=== PATIENT | female | born 1950 | race Caucasian/White ===

== ENCOUNTER 2016-08-21 19:08 | Emergency (ER) | payer MEDICARE, OTHER ==
[~2016-08-21] VITALS: Ht 167.6 cm; Wt 84.4 kg
[~2016-08-21 19:08] MED LIST: ATOR10TA PO
[2016-08-21 19:17] VITALS: BP 133/89; PULSE 97; RESP 20; TEMP 98.1; O2SAT 95
--- NOTE | 2016-08-21 20:01 | PD ---
HPI . facial cellulitis since Friday Chief Complaint: Skin Problem Time Seen by Provider: 20:00 Travel History International Travel<30 days: No Contact w/Intl Traveler<30days: No Traveled to known affect area: No History of Present Illness HPI 66-year-old with hyperlipidemia here with complaint of a facial cellulitis and possible staph infection that has been present since Friday. Patient went to [facility] yesterday was given doxycycline and Bactroban. She is here today complaining that the medications are not working and the area spreading. She denies any fever or chills. She denies use of new makeup or hygiene products. She is accompanied by her daughter. [facility] Past Medical History High Cholesterol: Yes Menopausal: Yes Social History Alcohol Use: Yes (SOCIALLY OCCAS) Tobacco Use: No Substance Use: No Allergies-Medications (Allergen,Severity, Reaction): Coded Allergies: Cipro (Unverified Allergy, Mild, PAIN, 08/21/16) "CIPRO FAMILY" Reported Meds & Prescriptions Reported Meds & Active Scripts Active Reported Doxycycline 40 Mg Cap 100 Mg PO BID Calcium 1200 (Calcium Carbonate-Vitamin D W/Minerals) 1,200-1,000 Mg-Unit Chew 1 Tab CHEW DAILY Probiotic (Lactobacillus Acidophilus) 1 Cap Cap 1 Cap PO TIDAC Vitamin D3 (Cholecalciferol) 1,000 Unit Chew 1,000 Units CHEW DAILY Magnesium Oxide 400 Mg Tab 400 Mg PO DAILY Multivitamin Women (Multiple Vitamins W/ Minerals) 1 Tab Tab 1 Tab PO DAILY Vitamin C (Ascorbic Acid) 500 Mg Chew 500 Mg CHEW DAILY Latanoprost Opth Drops (Latanoprost) 0.005% Drops 1 Drop EACH EYE HS Refrigerate until opened. Atorvastatin (Atorvastatin Calcium) 40 Mg Tab 40 Mg PO HS Review of Systems General / Constitutional: No: Fever Eyes: No: Visual changes HENT: No: Headaches Cardiovascular: No: Chest Pain or Discomfort Respiratory: No: Shortness of Breath Gastrointestinal: No: Abdominal Pain Genitourinary: No: Dysuria Musculoskeletal: No: Pain Skin: Positive Other (erythema and edema around nasal bridge), No Rash Neurologic: No: Weakness Psychiatric: No: Depression Endocrine: No: Polydipsia Hematologic/Lymphatic: No: Easy Bruising Physical Exam Narrative GENERAL: AAO x 3, no acute distress, Well-nourished, well-developed patient. SKIN: Warm and dry. No visible rashes or bruising. Erythema and edema around the right nasal bridge and under right eye. Spares periorbital area. no abscess collection. Very superficial. HEAD: Normocephalic and atraumatic. EYES: No scleral icterus. No injection or drainage. EOM intact ENT: No nasal drainage noted. Mucous membranes pink. Airway patent. NECK: Supple, trachea midline. No JVD. CARDIOVASCULAR: Regular rate and rhythm without murmurs, gallops, or rubs. RESPIRATORY: Breath sounds equal bilaterally. No accessory muscle use. No rhonchi or rales. GASTROINTESTINAL: Abdomen soft, non-tender, nondistended. EXTREMITIES: No cyanosis or edema. BACK: Nontender without obvious deformity. No CVA tenderness. PSYCH: AAO x 3, normal affect. Data Data Last Documented VS Vital Signs Date Time Temp Pulse Resp B/P Pulse Ox O2 Delivery O2 Flow Rate FiO2 08/21/16 19:17 98.1 97 20 133/89 95 MDM Medical Decision Making Medical Screen Exam Complete: Yes Emergency Medical Condition: Yes Medical Record Reviewed: Yes Differential Diagnosis facial cellulitis, less likely facial abscess, less likely facial fracture Narrative Course 66-year-old with hyperlipidemia here with complaint of a facial cellulitis and possible staph infection that has been present since Friday. Patient went to [facility] yesterday was given doxycycline and Bactroban. She is here today complaining that the medications are not working and the area spreading. She denies any fever or chills. She denies use of new makeup or hygiene products. She is accompanied by her daughter. Patient seen and examined. She does appear to have a facial cellulitis. She does not have periorbital cellulitis. Nor does she have a definitive abscess. She is already taking doxycycline and Bactroban. I recommend adding Bactrim to cover MRSA. I recommend that she follow up with the dermatology office tomorrow. Apparently they took some sort of sample and have a culture pending. She will need to follow those results. Today there is nothing to sample. I advised her if this worsens, that she was to return to the ED immediately. Patient verbalized understanding of instructions, questions were answered, and thanked me for their care. I advised them if their condition worsens, please return to the nearest emergency room for further care. Diagnosis Primary Impression: Facial cellulitis Patient Instructions: Cellulitis (ED), General Instructions Additional Instructions: Please return to emergency department if your symptoms return or worsen. Follow up with your primary care provider. Take medications as prescribed. [place] for worsening signs of infection which include increased redness, increased warmth, purulent drainage, increased swelling or streaking. Return to the emergency department if you seen any signs of worsening infection. Follow up with the drive in waiter/waitress tomorrow. Med/Other Pt SpecificInfo: Prescription(s) given Scripts Sulfamethoxazole-Trimethoprim (Bactrim DS)800-160 Mg Tab1 Tab PO BID #20 TAB Prov:Laya Krueger MD 08/21/16 Disposition: 01 DISCHARGE HOME Condition: Stable [place] Aug 21, 2016 20:01
[2016-08-21] MEDS ORDERED: CHOL100025 CHEW (20:07)
[2016-08-21] MEDS ORDERED: ATOR40TA16 PO (20:07)
[2016-08-21] MEDS ORDERED: LATA0.002 EACH EYE (20:07)
[2016-08-21] MEDS ORDERED: MULT-120 PO (20:07)
[2016-08-21] MEDS ORDERED: CALCCHW9 CHEW (20:07)
[2016-08-21] MEDS ORDERED: LACTCAP8 PO (20:07)
[2016-08-21] MEDS ORDERED: VITA500C9 CHEW (20:07)
[2016-08-21] MEDS ORDERED: MAGN400T2 PO (20:07)
[2016-08-21] MEDS ORDERED: DOXY1CAP74 PO (20:07)
[2016-08-21] MEDS ORDERED: BACT800T5 PO (20:13)
== END 2016-08-21 20:28 | disposition home or self-care (01) ==
LOC: PHED 19:08 → PHEFT 20:28
DX: L03.211 Cellulitis of face (principal); E78.5 Hyperlipidemia, unspecified; E78.00 Pure hypercholesterolemia, unspecified
CPT/HCPCS: 99282

== ENCOUNTER 2017-05-11 19:56 | Emergency (ER) | payer MEDICARE, OTHER ==
[~2017-05-11] VITALS: Ht 167.6 cm; Wt 84.7 kg
[~2017-05-11 19:56] MED LIST changes: -ATOR10TA PO; +ATOR40TA16 PO; +BACT800T5 PO; +CALCCHW9 CHEW; +CHOL100025 CHEW; +DOXY1CAP74 PO; +LACTCAP8 PO; +LATA0.002 EACH EYE; +MAGN400T2 PO; +MULT-120 PO; +VITA500C9 CHEW
[2017-05-11 20:05] VITALS: BP 172/86; PULSE 100; RESP 18; TEMP 97.6; O2SAT 95
--- NOTE | 2017-05-11 21:33 | PD ---
HPI Chief Complaint: Injury Time Seen by Provider: 21:25 Travel History International Travel<30 days: No Contact w/Intl Traveler<30days: No Traveled to known affect area: No History of Present Illness HPI WHILE WALKING, DIDN'T PAY ATTENTION AND RAN HEAD FIRST INTO SLIDING DOOR, NO BREAKING OR ANYTHING BUT HER NOSE STARTED TO BLEED, AFTER NEARLY AN HOUR OF PRESSURE, BLEEDING HAS FINALLY STOPPED BUT PATIENT WANTED TO BLOW HER NOSE BUT DECIDED TO BE SEEN BEFORE DOING SO PFSH Past Medical History High Cholesterol: Yes Glaucoma: Yes Tetanus Vaccination: > 5 Years Influenza Vaccination: Yes ?: Not Menopausal: Yes Tubal Ligation: Yes Past Surgical History Hysterectomy: Yes Social History Alcohol Use: Yes (SOCIALLY OCCAS) Tobacco Use: Yes (6cigs a day) Substance Use: No Allergies-Medications (Allergen,Severity, Reaction): Coded Allergies: ciprofloxacin (Unverified Allergy, Mild, PAIN, 05/11/17) "CIPRO FAMILY" Reported Meds & Prescriptions Reported Meds & Active Scripts Active Ultram (Tramadol HCl) 50 Mg Tab 50 Mg PO Q6H PRN Reported Vitamin D3 (Cholecalciferol) 1,000 Unit Chew 1,000 Units CHEW DAILY Magnesium Oxide 400 Mg Tab 400 Mg PO DAILY Latanoprost Opth Drops (Latanoprost) 0.005% Drops 1 Drop EACH EYE HS Refrigerate until opened. Atorvastatin (Atorvastatin Calcium) 40 Mg Tab 40 Mg PO HS Review of Systems Except as stated in HPI: all other systems reviewed are Neg General / Constitutional: No: Fever Eyes: No: Visual changes HENT: Positive: Other (NOSE PAIN) Cardiovascular: No: Chest Pain or Discomfort Respiratory: No: Shortness of Breath Gastrointestinal: No: Abdominal Pain Genitourinary: No: Dysuria Musculoskeletal: No: Pain Skin: No Rash Neurologic: No: Weakness Psychiatric: No: Depression Endocrine: No: Polydipsia Hematologic/Lymphatic: No: Easy Bruising Physical Exam Narrative GENERAL: SKIN: Warm and dry. HEAD: Atraumatic. Normocephalic. EYES: Pupils equal and round. No scleral icterus. No injection or drainage. ENT: No nasal bleeding or discharge. Mucous membranes pink and moist. SWELLING TO NASAL BRIDGE, NO ACTIVE BLEEDING, CLOTS NOTED ON ANTERIOR PASSAGES WITHOUT ACTIVE BLEEDING NECK: Trachea midline. No JVD. CARDIOVASCULAR: Regular rate and rhythm. RESPIRATORY: No accessory muscle use. Clear to auscultation. Breath sounds equal bilaterally. GASTROINTESTINAL: Abdomen soft, non-tender, nondistended. MUSCULOSKELETAL: Extremities without clubbing, cyanosis, or edema. No obvious deformities. NEUROLOGICAL: Awake and alert. No obvious cranial nerve deficits. Motor grossly within normal limits. Five out of 5 muscle strength in the arms and legs. Normal speech. PSYCHIATRIC: Appropriate mood and affect; insight and judgment normal. Data Data Last Documented VS Vital Signs Date Time Temp Pulse Resp B/P (MAP) Pulse Ox O2 Delivery O2 Flow Rate FiO2 05/11/17 20:13 Room Air 05/11/17 20:05 97.6 100 18 172/86 (114) 95 Orders Orders Nasal Bones (Min 3 Vws) (05/11/17 ) Ed Discharge Order (05/11/17 22:09) [facility] Medical Decision Making Medical Screen Exam Complete: Yes Emergency Medical Condition: Yes Medical Record Reviewed: Yes Differential Diagnosis NASAL FX V CONTUSION Narrative Course after review of xray no major displaced nasal fracture noted. and epixtaxis resolved therefore no need to use rhinorocket Diagnosis Primary Impression: Contusion of nose, initial encounter Additional Impression: EPISTAXIS RESOLVED Patient Instructions: General Instructions, Nasal Contusion (ED) Scripts Tramadol (Ultram) 50 Mg Tab 50 MG PO Q6H Y for PAIN, #10 TAB 0 Refills Prov: Lalo Paez MD 05/11/17 Disposition: 01 DISCHARGE HOME Condition: Stable Lalo Paez MD May 11, 2017 21:33
--- NOTE | 2017-05-11 21:56 | RADRPT ---
EXAM DATE/TIME: 05/11/2017 21:31 [facility] COMPARISON: No previous studies available for comparison. INDICATIONS : Nose bleed after walking into a glass door. MEDICAL HISTORY : None. SURGICAL HISTORY : None. ENCOUNTER: Initial ACUITY: 1 day PAIN SCORE: 6/10 LOCATION: nose FINDINGS: There is a vertical lucency seen over proximal aspect the nasal bones. This appears to extend superio r to the nasal bones raising a possibility of a mach effect from overlying soft tissues. A nondisplac ed fracture cannot be excluded. CONCLUSION: Vertical lucency overlying the proximal nasal bones related to either a Mach effect or nondisplaced f racture. Khurram Pereira MD on May 11, 2017 at 21:49 Board Certified Radiologist. This report was verified electronically.
[2017-05-11] MEDS ORDERED: TRAM50 PO (22:08)
== END 2017-05-11 22:19 | disposition home or self-care (01) ==
LOC: PHEFT 19:56
DX: S00.33XA Contusion of nose, initial encounter (principal); E78.00 Pure hypercholesterolemia, unspecified; W22.09XA Striking against other stationary object, initial encounter; Y93.01 Activity, walking, marching and hiking; Y92.009 Unspecified place in unspecified non-institutional (private) residence as the place of occurrence of the external cause; Z72.0 Tobacco use
CPT/HCPCS: 70160; 99283